=== PATIENT | male | born 1930 | race Caucasian/White ===

== ENCOUNTER 2017-03-19 09:09 | Day surgery (SDC) | payer MEDICARE ==
[~2017-03-19] VITALS: Ht 188 cm; Wt 123.2 kg
[2017-03-19] VITALS (10 sets, daily range): BP systolic 116–145; BP diastolic 63–90
[~2017-03-19 09:09] MED LIST: Magnesium PO; VITAMIN B12 PO; VITAMIN B6 PO
[2017-03-19] MEDS ORDERED: normal saline 1000ml 1,000 ML IV PRN (09:45)
[2017-03-19] MEDS ORDERED: albumin (human) 25% 100 ML IV solution IV PRN (09:45)
== END 2017-03-19 11:40 | disposition home or self-care (01) ==
LOC: SSTAY O 09:09
PROVIDERS: ATTEND Radiology Diagnostic Radiology
DX: K74.60 Unspecified cirrhosis of liver (principal); N18.4 Chronic kidney disease, stage 4 (severe); I48.91 Unspecified atrial fibrillation; Z95.810 Presence of automatic (implantable) cardiac defibrillator; Z98.890 Other specified postprocedural states; Z87.891 Personal history of nicotine dependence; Z88.6 Allergy status to analgesic agent; Z79.899 Other long term (current) drug therapy
CPT/HCPCS: 49083; A6257; J7030

== ENCOUNTER 2017-03-31 09:29 | Day surgery (SDC) | payer MEDICARE ==
[2017-03-31] VITALS (10 sets, daily range): BP systolic 124–156; BP diastolic 68–90
[~2017-03-31] VITALS: Ht 188 cm; Wt 128.8 kg
[2017-03-31] MEDS ORDERED: albumin (human) 25% 100 ML IV solution IV PRN (09:50)
[2017-03-31] MEDS ORDERED: normal saline 1000ml 1,000 ML IV PRN (09:50)
[2017-04-01] MEDS ORDERED: CIPR-230 PO (22:12)
[2017-04-01] MEDS ORDERED: POVI30SO (22:12)
== END 2017-03-31 12:00 | disposition home or self-care (01) ==
LOC: SSTAY O 09:29
PROVIDERS: ATTEND Radiology Vascular & Interventional Radiology
DX: R18.8 Other ascites (principal); K76.9 Liver disease, unspecified; I50.9 Heart failure, unspecified; N18.4 Chronic kidney disease, stage 4 (severe); I13.0 Hypertensive heart and chronic kidney disease with heart failure and stage 1 through stage 4 chronic kidney disease, or unspecified chronic kidney disease; I48.91 Unspecified atrial fibrillation; Z95.810 Presence of automatic (implantable) cardiac defibrillator; Z98.890 Other specified postprocedural states; Z86.19 Personal history of other infectious and parasitic diseases; Z82.49 Family history of ischemic heart disease and other diseases of the circulatory system; Z82.3 Family history of stroke; Z83.3 Family history of diabetes mellitus
CPT/HCPCS: 49083; A6257; J7030

== ENCOUNTER 2017-04-01 17:32 | Inpatient (IN) | payer MEDICARE ==
[~2017-04-01] VITALS: Ht 188 cm; Wt 117.7 kg
[2017-04-01 18:23] LABS: BASOPHILS % (AUTO) 0 % (0-1); EOSINOPHILS # (AUTO) 0.1 X10'3 (0-0.9); EOSINOPHILS % (AUTO) 1.5 % (0-6); HEMATOCRIT 29.1 % (42.0-52.0); HEMOGLOBIN 9.4 g/dl (14.0-17.9); LYMPHOCYTES # (AUTO) 0.7 X10'3 (1.1-4.8); LYMPHOCYTES % (AUTO) 6.8 % (21-51); MEAN CORPUSCULAR HEMOGLOBIN 29.7 PG (27.0-31.0); MEAN CORPUSCULAR HGB CONC 32.3 % (33.0-36.5); MEAN PLATELET VOLUME 6.4 FL (7.4-10.4); MONOCYTES # (AUTO) 0.8 X10'3 (0-0.9); MONOCYTES % (AUTO) 7.6 % (2-12); NEUTROPHILS # (AUTO) 8.3 X10'3 (1.8-7.7); NEUTROPHILS % (AUTO) 84.1 % (42-75); PLATELET COUNT 309 X10'3 (140-440); RED BLOOD COUNT 3.16 X10'6 (4.70-6.10); RED CELL DISTRIBUTION WIDTH 16.7 % (11.5-14.5); WHITE BLOOD COUNT 9.9 X10'3 (4.5-11.0)
[2017-04-01 18:33] LABS: INR 1.2 INR; PARTIAL THROMBOPLASTIN TIME 32 SECONDS (22-32); PROTHROMBIN TIME 12.7 SECONDS (9.0-12.0)
[2017-04-01 18:36] LABS: ALANINE AMINOTRANSFERASE 18 U/L (12-78); ALBUMIN 1.9 G/DL (3.4-5.0); ALBUMIN/GLOBULIN RATIO 0.4 (1.1-1.5); ALKALINE PHOSPHATASE 79 IU/L (46-116); ANION GAP 14 (8-16); ASPARTATE AMINO TRANSFERASE 14 U/L (10-37); BILIRUBIN,TOTAL 0.4 MG/DL (0.1-1.0); BLOOD UREA NITROGEN 94 MG/DL (7-18); CALCIUM 7.4 MG/DL (8.5-10.1); CHLORIDE 108 MMOL/L (99-107); CREATININE 5.89 MG/DL (0.60-1.10); GLUCOSE 141 MG/DL (70-104); POTASSIUM 3.7 MMOL/L (3.5-5.1); SODIUM 137 MMOL/L (135-145); TOTAL PROTEIN 6.8 G/DL (6.4-8.2); eGFR 9 ML/MIN
[2017-04-01 18:41] LABS: TOTAL CARBON DIOXIDE 14.9 MMOL/L (24-32)
[2017-04-01] MEDS ORDERED: levoFLOXACIN-Levaquin 500mg/D5 100 ML IV ONE (19:25)
[2017-04-01 19:45] LABS: CLARITY,URINE SLIGHTLY CLOUDY (Clear); COLOR,URINE STRAW (Yellow); GLUCOSE, URINE NEGATIVE (Neg); KETONES,URINE NEGATIVE (Neg); LEUKOCYTE ESTERASE ,URINE MODERATE (Neg); NITRITES, URINE POSITIVE (Neg); OCCULT BLOOD,URINE LARGE (Neg); PH,URINE 5.5 (4.8-8.0); PROTEIN,URINE 30 mg/dl (Neg); UROBILINOGEN,URINE 0.2 E.U/dL (0.2-1.0)
[2017-04-01 19:50] LABS: UA COLLECTION TYPE STRAIGHT CATH
[2017-04-01 19:52] LABS: RBC,URINE TNTC /HPF (0-2); WBC,URINE TNTC /HPF (0-4)
[2017-04-01 19:53] LABS: BACTERIA,URINE 2+ /HPF (Neg); SQUAMOUS EPITHELIAL CELL,UR NONE SEEN /LPF (FEW)
[2017-04-01 19:54] LABS: COARSE GRANULAR CAST 0-3 /LPF (NEGATIVE)
[2017-04-01] MEDS ORDERED: normal saline 1000ml 1,000 ML IV ONE (21:05)
[2017-04-01] MEDS ORDERED: diltiazem 5mg/ml 5ml inj. IV ONE (21:35)
[2017-04-01] MEDS ORDERED: ondansetron/PF 4mg/2ml inj IV PRN (21:35)
[2017-04-01] MEDS ORDERED: acetaminophen 325mg tablet PO PRN (21:35)
[2017-04-01] MEDS ORDERED: mag hydrox/Alum hydrox/simeth 30ml oral suspension PO PRN (21:35)
[2017-04-01] MEDS ORDERED: CIPR-230 PO (22:12)
[2017-04-01] MEDS ORDERED: POVI30SO (22:12)
[2017-04-01] MEDS: normal saline 1000ml 1,000 ML IV SCH (22:30)
[2017-04-01 22:50] VITALS: BP 119/75
[2017-04-02 03:00] VITALS: BP 121/61
[2017-04-02] MEDS ORDERED: metoprolol tartrate 25mg tablet PO SCH (04:45)
[2017-04-02 05:30] VITALS: BP 113/49
[2017-04-02 06:18] LABS: BASOPHILS % (AUTO) 0.3 % (0-1); EOSINOPHILS # (AUTO) 0.2 X10'3 (0-0.9); EOSINOPHILS % (AUTO) 1.9 % (0-6); HEMATOCRIT 23.9 % (42.0-52.0); HEMOGLOBIN 7.9 g/dl (14.0-17.9); LYMPHOCYTES # (AUTO) 0.7 X10'3 (1.1-4.8); LYMPHOCYTES % (AUTO) 8.6 % (21-51); MEAN CORPUSCULAR HEMOGLOBIN 29.9 PG (27.0-31.0); MEAN CORPUSCULAR HGB CONC 32.9 % (33.0-36.5); MEAN CORPUSCULAR VOLUME 90.9 FL (78-98); MEAN PLATELET VOLUME 6.8 FL (7.4-10.4); MONOCYTES # (AUTO) 0.7 X10'3 (0-0.9); MONOCYTES % (AUTO) 8.2 % (2-12); NEUTROPHILS # (AUTO) 6.4 X10'3 (1.8-7.7); PLATELET COUNT 277 X10'3 (140-440); RED BLOOD COUNT 2.63 X10'6 (4.70-6.10); RED CELL DISTRIBUTION WIDTH 16.9 % (11.5-14.5)
[2017-04-02 06:31] LABS: ALBUMIN 1.5 G/DL (3.4-5.0); ANION GAP 13 (8-16); BLOOD UREA NITROGEN 91 MG/DL (7-18); CALCIUM 7.2 MG/DL (8.5-10.1); CHLORIDE 109 MMOL/L (99-107); CREATININE 5.68 MG/DL (0.60-1.10); GLUCOSE 106 MG/DL (70-104); POTASSIUM 3.6 MMOL/L (3.5-5.1); SODIUM 137 MMOL/L (135-145); eGFR 9 ML/MIN
[2017-04-02 06:55] LABS: TOTAL CARBON DIOXIDE 14.8 MMOL/L (24-32)
[2017-04-02] MEDS: normal saline 1000ml 1,000 ML IV SCH ×3 (07:35→21:13)
[2017-04-02] MEDS: levoFLOXACIN-Levaquin 500mg/D5 100 ML IV SCH (09:07)
[2017-04-02] MEDS: metoprolol tartrate 25mg tablet PO SCH ×2 (09:08→21:13)
[2017-04-02 11:00] VITALS: BP 129/71
[2017-04-02 13:11] LABS: CREATININE,URINE RANDOM 61.9 MG/DL; TOTAL PROTEIN,URINE RANDOM 92.5 MG/DL
[2017-04-02 15:00] VITALS: BP 118/63
[2017-04-02 16:16] LABS: ABG BASE EXCESS -13.6 mmol/L (-2.0-3.0); ABG HCO3 10.9 mmol/L (22.0-26.0); ABG OXYGEN SATURATION 96.3 % (95-98); ABG PCO2 (T) 21.5 mmHg (35.0-48.0); ABG PH (T) 7.322 (7.350-7.450); ABG PO2 (T) 93.9 mmHg (83-108); ALLEN'S TEST Positive; FCOHb 0.3 % (0.5-1.5); FMetHb 0.4 % (0.3-1.12); FO2Hb 95.6 % (94-100); TOTAL HEMOGLOBIN 9.1 G/dl (14.0-18.0)
[2017-04-02 18:00] VITALS: BP 126/73
[2017-04-02] MEDS: furosemide 10 MG/1 ML 10ml inj IV SCH (21:13)
[2017-04-02] MEDS: magnesium hydroxide 30ml (MOM) UD suspension PO PRN (21:31)
[2017-04-02 22:00] VITALS: BP 123/67
[2017-04-03 02:00] VITALS: BP 132/72
[2017-04-03] MEDS: normal saline 1000ml 1,000 ML IV SCH ×4 (02:38→13:35)
[2017-04-03 05:53] LABS: BASOPHILS % (AUTO) 0 % (0-1); EOSINOPHILS # (AUTO) 0.2 X10'3 (0-0.9); EOSINOPHILS % (AUTO) 2.2 % (0-6); HEMATOCRIT 28.4 % (42.0-52.0); HEMOGLOBIN 9.2 g/dl (14.0-17.9); LYMPHOCYTES # (AUTO) 0.7 X10'3 (1.1-4.8); LYMPHOCYTES % (AUTO) 7.4 % (21-51); MEAN CORPUSCULAR HEMOGLOBIN 29.7 PG (27.0-31.0); MEAN CORPUSCULAR HGB CONC 32.3 % (33.0-36.5); MEAN CORPUSCULAR VOLUME 92.1 FL (78-98); MEAN PLATELET VOLUME 6.7 FL (7.4-10.4); MONOCYTES # (AUTO) 0.6 X10'3 (0-0.9); MONOCYTES % (AUTO) 6.2 % (2-12); NEUTROPHILS # (AUTO) 8.2 X10'3 (1.8-7.7); NEUTROPHILS % (AUTO) 84.2 % (42-75); PLATELET COUNT 323 X10'3 (140-440); RED BLOOD COUNT 3.09 X10'6 (4.70-6.10); RED CELL DISTRIBUTION WIDTH 16.5 % (11.5-14.5); WHITE BLOOD COUNT 9.7 X10'3 (4.5-11.0)
[2017-04-03 06:00] VITALS: BP 114/60
[2017-04-03 06:20] LABS: ALBUMIN 1.7 G/DL (3.4-5.0); ANION GAP 14 (8-16); BLOOD UREA NITROGEN 87 MG/DL (7-18); BUN/CREATININE RATIO 16.9 (5.4-32.0); CALCIUM 7.6 MG/DL (8.5-10.1); CHLORIDE 106 MMOL/L (99-107); CREATININE 5.16 MG/DL (0.60-1.10); GLUCOSE 113 MG/DL (70-104); POTASSIUM 3.7 MMOL/L (3.5-5.1); SODIUM 134 MMOL/L (135-145); eGFR 11 ML/MIN
[2017-04-03 06:58] LABS: TOTAL CARBON DIOXIDE 14.3 MMOL/L (24-32)
[2017-04-03] MEDS: levoFLOXACIN-Levaquin 500mg/D5 100 ML IV SCH (08:16)
[2017-04-03] MEDS: furosemide 10 MG/1 ML 10ml inj IV SCH (08:17)
[2017-04-03] MEDS: metoprolol tartrate 25mg tablet PO SCH ×2 (08:17→21:01)
[2017-04-03] MEDS: LACTOBACILLUS RHAMNOSUS GG 15 billion unit sprinkle caps PO SCH (08:17)
[2017-04-03] MEDS: POVIDONE IODINE TP SCH (08:42)
[2017-04-03] MEDS: sodium bicarbonate (8.4%) inj. 100 MEQ in dextrose 5%-water 1,000 ML IV SCH ×2 (11:32→21:03)
[2017-04-03] MEDS ORDERED: vancomycin/NS 1 GM ADD-VANTAGE 250 ML IV ONE (15:50)
[2017-04-03] MEDS ORDERED: heparin 10,000 units/1 ML INJ IV ONE (17:45)
[2017-04-03] MEDS ORDERED: heparin 10,000 units/1 ML INJ IV PRN (17:45)
[2017-04-03 18:12] LABS: BASOPHILS % (AUTO) 0 % (0-1); EOSINOPHILS # (AUTO) 0.1 X10'3 (0-0.9); EOSINOPHILS % (AUTO) 1.5 % (0-6); HEMOGLOBIN 8.8 g/dl (14.0-17.9); LYMPHOCYTES # (AUTO) 0.7 X10'3 (1.1-4.8); LYMPHOCYTES % (AUTO) 7.6 % (21-51); MEAN CORPUSCULAR HEMOGLOBIN 29.7 PG (27.0-31.0); MEAN CORPUSCULAR HGB CONC 32.5 % (33.0-36.5); MEAN CORPUSCULAR VOLUME 91.4 FL (78-98); MEAN PLATELET VOLUME 6.5 FL (7.4-10.4); MONOCYTES # (AUTO) 0.7 X10'3 (0-0.9); NEUTROPHILS # (AUTO) 7.5 X10'3 (1.8-7.7); NEUTROPHILS % (AUTO) 82.9 % (42-75); PLATELET COUNT 298 X10'3 (140-440); RED BLOOD COUNT 2.95 X10'6 (4.70-6.10); RED CELL DISTRIBUTION WIDTH 16.4 % (11.5-14.5)
[2017-04-03 18:22] LABS: INR 1.3 INR; PARTIAL THROMBOPLASTIN TIME 35 SECONDS (22-32); PROTHROMBIN TIME 13.4 SECONDS (9.0-12.0)
[2017-04-03 19:00] VITALS: BP 119/59
[2017-04-03] MEDS ORDERED: bisacodyl 10mg suppository rectal RC STA (20:09)
[2017-04-03 23:00] VITALS: BP 119/67
[2017-04-03] MEDS: piperacillin-tazo 2.25gm/50ml 50 ML IV SCH (23:13)
[2017-04-03 23:27] LABS: OCCULT BLOOD STOOL NEGATIVE (Neg)
[2017-04-04 03:00] VITALS: BP 116/60
[2017-04-04] MEDS: VANCOMYCIN LEVEL IV SCH (03:00)
[2017-04-04 04:04] LABS: BASOPHILS % (AUTO) 0 % (0-1); EOSINOPHILS # (AUTO) 0.2 X10'3 (0-0.9); HEMOGLOBIN 8.4 g/dl (14.0-17.9); LYMPHOCYTES # (AUTO) 0.6 X10'3 (1.1-4.8); LYMPHOCYTES % (AUTO) 7.4 % (21-51); MEAN CORPUSCULAR HEMOGLOBIN 29.7 PG (27.0-31.0); MEAN CORPUSCULAR HGB CONC 32.2 % (33.0-36.5); MEAN CORPUSCULAR VOLUME 92.4 FL (78-98); MEAN PLATELET VOLUME 6.3 FL (7.4-10.4); MONOCYTES # (AUTO) 0.7 X10'3 (0-0.9); MONOCYTES % (AUTO) 8.1 % (2-12); NEUTROPHILS % (AUTO) 82.5 % (42-75); PLATELET COUNT 296 X10'3 (140-440); RED BLOOD COUNT 2.82 X10'6 (4.70-6.10); RED CELL DISTRIBUTION WIDTH 16.9 % (11.5-14.5); WHITE BLOOD COUNT 8.5 X10'3 (4.5-11.0)
[2017-04-04 04:19] LABS: ALBUMIN 1.4 G/DL (3.4-5.0); ANION GAP 13 (8-16); BLOOD UREA NITROGEN 88 MG/DL (7-18); BUN/CREATININE RATIO 16.7 (5.4-32.0); CALCIUM 6.9 MG/DL (8.5-10.1); CHLORIDE 105 MMOL/L (99-107); CREATININE 5.27 MG/DL (0.60-1.10); GLUCOSE 147 MG/DL (70-104); POTASSIUM 3.3 MMOL/L (3.5-5.1); SODIUM 135 MMOL/L (135-145); TOTAL CARBON DIOXIDE 17.2 MMOL/L (24-32); VANCOMYCIN,RANDOM 5.3 UG/ML; eGFR 10 ML/MIN
[2017-04-04] MEDS: sodium bicarbonate (8.4%) inj. 100 MEQ in dextrose 5%-water 1,000 ML IV SCH ×3 (05:11→21:55)
[2017-04-04 06:00] VITALS: BP 123/63
[2017-04-04] MEDS ORDERED: vancomycin/NS 1 GM ADD-VANTAGE 250 ML IV PRN (06:00)
[2017-04-04] MEDS: piperacillin-tazo 2.25gm/50ml 50 ML IV SCH ×3 (08:54→23:13)
[2017-04-04] MEDS: LACTOBACILLUS RHAMNOSUS GG 15 billion unit sprinkle caps PO SCH (08:55)
[2017-04-04] MEDS: metoprolol tartrate 25mg tablet PO SCH ×2 (08:55→19:57)
[2017-04-04] MEDS: furosemide 10 MG/1 ML 10ml inj IV SCH (08:56)
[2017-04-04] MEDS: POVIDONE IODINE TP SCH (08:56)
[2017-04-04] MEDS ORDERED: potassium Cl 20 mEq SR tablet PO PRN ×3 (09:05→16:10)
[2017-04-04] MEDS ORDERED: potassium Cl 40MEQ/NS 500ml 500 ML IV PRN ×4 (09:05→16:10)
[2017-04-04] MEDS: potassium Cl 20 mEq SR tablet PO PRN ×3 (09:49→21:35)
[2017-04-04 11:00] VITALS: BP 134/56
[2017-04-04 15:00] VITALS: BP 124/59
[2017-04-04 19:00] VITALS: BP 128/78
[2017-04-04] MEDS ORDERED: temazepam 15mg capsule PO ONE (21:00)
[2017-04-04 23:00] VITALS: BP 125/73
[2017-04-05 03:00] VITALS: BP 140/82
[2017-04-05] MEDS: VANCOMYCIN LEVEL IV SCH (03:11)
[2017-04-05 03:40] LABS: UREA NITROGEN 24HR,URINE 10.7 GM/24HR (7-20)
[2017-04-05 06:00] VITALS: BP 120/55
[2017-04-05 06:04] LABS: BASOPHILS % (AUTO) 0.1 % (0-1); EOSINOPHILS # (AUTO) 0.2 X10'3 (0-0.9); EOSINOPHILS % (AUTO) 2.2 % (0-6); HEMATOCRIT 25.2 % (42.0-52.0); HEMOGLOBIN 8.2 g/dl (14.0-17.9); LYMPHOCYTES # (AUTO) 0.7 X10'3 (1.1-4.8); LYMPHOCYTES % (AUTO) 8.7 % (21-51); MEAN CORPUSCULAR HEMOGLOBIN 29.6 PG (27.0-31.0); MEAN CORPUSCULAR HGB CONC 32.6 % (33.0-36.5); MEAN CORPUSCULAR VOLUME 90.8 FL (78-98); MEAN PLATELET VOLUME 6.8 FL (7.4-10.4); MONOCYTES # (AUTO) 0.8 X10'3 (0-0.9); NEUTROPHILS # (AUTO) 6.5 X10'3 (1.8-7.7); PLATELET COUNT 293 X10'3 (140-440); RED BLOOD COUNT 2.78 X10'6 (4.70-6.10); RED CELL DISTRIBUTION WIDTH 16.6 % (11.5-14.5); WHITE BLOOD COUNT 8.2 X10'3 (4.5-11.0)
[2017-04-05 06:33] LABS: ALBUMIN 1.2 G/DL (3.4-5.0); ANION GAP 12 (8-16); BLOOD UREA NITROGEN 80 MG/DL (7-18); BUN/CREATININE RATIO 15.8 (5.4-32.0); CALCIUM 7.2 MG/DL (8.5-10.1); CHLORIDE 103 MMOL/L (99-107); CREATININE 5.05 MG/DL (0.60-1.10); GLUCOSE 147 MG/DL (70-104); POTASSIUM 3.2 MMOL/L (3.5-5.1); SODIUM 134 MMOL/L (135-145); TOTAL CARBON DIOXIDE 19.1 MMOL/L (24-32); VANCOMYCIN,RANDOM 14.9 UG/ML; eGFR 11 ML/MIN
[2017-04-05] MEDS: sodium bicarbonate (8.4%) inj. 100 MEQ in dextrose 5%-water 1,000 ML IV SCH ×2 (07:04→15:05)
[2017-04-05] MEDS: piperacillin-tazo 2.25gm/50ml 50 ML IV SCH ×2 (07:20→15:05)
[2017-04-05] MEDS: metoprolol tartrate 25mg tablet PO SCH ×2 (07:20→19:38)
[2017-04-05] MEDS: LACTOBACILLUS RHAMNOSUS GG 15 billion unit sprinkle caps PO SCH (07:22)
[2017-04-05] MEDS: K and/or MAG REPLACEMENT MC SCH (07:22)
[2017-04-05] MEDS: furosemide 10 MG/1 ML 10ml inj IV SCH (07:22)
[2017-04-05] MEDS: POVIDONE IODINE TP SCH (07:26)
[2017-04-05] MEDS: potassium Cl 20 mEq SR tablet PO PRN ×4 (07:29→22:32)
[2017-04-05 07:30] LABS: CLARITY,URINE SLIGHTLY CLOUDY (Clear); COLOR,URINE YELLOW (Yellow); GLUCOSE, URINE NEGATIVE (Neg); KETONES,URINE NEGATIVE (Neg); LEUKOCYTE ESTERASE ,URINE LARGE (Neg); NITRITES, URINE NEGATIVE (Neg); OCCULT BLOOD,URINE LARGE (Neg); PH,URINE 5.5 (4.8-8.0); PROTEIN,URINE NEGATIVE (Neg); UROBILINOGEN,URINE 0.2 E.U/dL (0.2-1.0)
[2017-04-05 07:37] LABS: UA COLLECTION TYPE FOLEY CATH
[2017-04-05 07:41] LABS: BACTERIA,URINE 1+ /HPF (Neg); MUCUS STRANDS NONE SEEN /LPF (Neg); SQUAMOUS EPITHELIAL CELL,UR NONE SEEN /LPF (FEW); WBC,URINE 20-30 /HPF (0-4)
[2017-04-05] MEDS ORDERED: K and/or MAG REPLACEMENT MC SCH (08:00)
[2017-04-05 11:00] VITALS: BP 135/60
[2017-04-05 15:00] VITALS: BP 141/69
[2017-04-05 19:00] VITALS: BP 125/60
[2017-04-05 20:16] LABS: ALANINE AMINOTRANSFERASE 13 U/L (12-78); ALBUMIN 1.3 G/DL (3.4-5.0); ALBUMIN/GLOBULIN RATIO 0.3 (1.1-1.5); ALKALINE PHOSPHATASE 59 IU/L (46-116); ANION GAP 9 (8-16); ASPARTATE AMINO TRANSFERASE 16 U/L (10-37); BILIRUBIN,TOTAL 0.4 MG/DL (0.1-1.0); BLOOD UREA NITROGEN 83 MG/DL (7-18); CALCIUM 7.1 MG/DL (8.5-10.1); CHLORIDE 101 MMOL/L (99-107); CREATININE 4.87 MG/DL (0.60-1.10); GLUCOSE 177 MG/DL (70-104); POTASSIUM 3.4 MMOL/L (3.5-5.1); SODIUM 132 MMOL/L (135-145); TOTAL CARBON DIOXIDE 22.3 MMOL/L (24-32); eGFR 11 ML/MIN
[2017-04-05 20:24] LABS: MAGNESIUM 1.8 MG/DL (1.5-2.4)
[2017-04-05] MEDS: temazepam 15mg capsule PO PRN (22:33)
[2017-04-05 23:00] VITALS: BP 129/59
[2017-04-06] VITALS (25 sets, daily range): BP systolic 102–140; BP diastolic 54–82
[2017-04-06] MEDS: sodium bicarbonate (8.4%) inj. 100 MEQ in dextrose 5%-water 1,000 ML IV SCH ×3 (00:32→14:34)
[2017-04-06] MEDS: piperacillin-tazo 2.25gm/50ml 50 ML IV SCH ×4 (00:32→23:33)
[2017-04-06] MEDS: VANCOMYCIN LEVEL IV SCH (03:00)
[2017-04-06 04:01] LABS: BASOPHILS % (AUTO) 0.1 % (0-1); EOSINOPHILS # (AUTO) 0.2 X10'3 (0-0.9); EOSINOPHILS % (AUTO) 2.1 % (0-6); HEMATOCRIT 25.6 % (42.0-52.0); HEMOGLOBIN 8.2 g/dl (14.0-17.9); LYMPHOCYTES # (AUTO) 0.8 X10'3 (1.1-4.8); LYMPHOCYTES % (AUTO) 9.6 % (21-51); MEAN CORPUSCULAR HEMOGLOBIN 29.3 PG (27.0-31.0); MEAN CORPUSCULAR HGB CONC 32.1 % (33.0-36.5); MEAN PLATELET VOLUME 7.1 FL (7.4-10.4); MONOCYTES # (AUTO) 0.8 X10'3 (0-0.9); MONOCYTES % (AUTO) 9.7 % (2-12); NEUTROPHILS # (AUTO) 6.7 X10'3 (1.8-7.7); NEUTROPHILS % (AUTO) 78.5 % (42-75); PLATELET COUNT 308 X10'3 (140-440); RED BLOOD COUNT 2.81 X10'6 (4.70-6.10); RED CELL DISTRIBUTION WIDTH 16.1 % (11.5-14.5); WHITE BLOOD COUNT 8.6 X10'3 (4.5-11.0)
[2017-04-06 04:03] LABS: ALBUMIN 1.3 G/DL (3.4-5.0); ANION GAP 10 (8-16); BLOOD UREA NITROGEN 82 MG/DL (7-18); BUN/CREATININE RATIO 16.4 (5.4-32.0); CALCIUM 7.2 MG/DL (8.5-10.1); CHLORIDE 100 MMOL/L (99-107); CREATININE 5.01 MG/DL (0.60-1.10); GLUCOSE 141 MG/DL (70-104); POTASSIUM 3.5 MMOL/L (3.5-5.1); SODIUM 132 MMOL/L (135-145); TOTAL CARBON DIOXIDE 21.6 MMOL/L (24-32); VANCOMYCIN,RANDOM 14.2 UG/ML; eGFR 11 ML/MIN
[2017-04-06] MEDS: K and/or MAG REPLACEMENT MC SCH (08:00)
[2017-04-06] MEDS: furosemide 10 MG/1 ML 10ml inj IV SCH (08:26)
[2017-04-06] MEDS: LACTOBACILLUS RHAMNOSUS GG 15 billion unit sprinkle caps PO SCH (08:27)
[2017-04-06] MEDS: metoprolol tartrate 25mg tablet PO SCH ×2 (08:27→20:34)
[2017-04-06] MEDS: POVIDONE IODINE TP SCH (08:28)
[2017-04-06] MEDS ORDERED: vancomycin inj 500 MG in normal saline 100ml IV soln 100 ML IV ONE (09:00)
[2017-04-06] MEDS ORDERED: fentaNYL/PF 50MCG/1 ML 2ML syringe IV PRN (12:15)
[2017-04-06] MEDS ORDERED: LIDOcaine 1%/PF (10mg/ml) 5ml vial SQ ONE (12:15)
[2017-04-06] MEDS ORDERED: midazolam 2 mg/2 ml injection IV PRN (12:15)
[2017-04-06] MEDS ORDERED: iohexol 300 MG/1 ML 50ml polymer ONE ×2 (12:19→13:38)
[2017-04-06] MEDS ORDERED: LIDOcaine 1%/PF (10mg/ml) 5ml vial ONE (12:19)
[2017-04-06] MEDS ORDERED: heparin 1,000unit/ml 10ml vial 0 ML ONE (13:54)
[2017-04-06] MEDS ORDERED: heparin 1,000 UNITS/NS 500ml 500 ML ONE (13:55)
[2017-04-06] MEDS ORDERED: midazolam 2 mg/2 ml injection ONE (13:55)
[2017-04-06] MEDS ORDERED: fentaNYL/PF 50MCG/1 ML 2ML syringe ONE ×2 (13:55→14:23)
[2017-04-06] MEDS: potassium Cl 20 mEq SR tablet PO SCH (16:54)
[2017-04-06] MEDS: amiodarone 200mg tablet PO SCH (20:33)
[2017-04-06] MEDS: temazepam 15mg capsule PO PRN (20:33)
[2017-04-06] MEDS: spironolactone 25 MG tablet PO SCH (20:34)
[2017-04-07 03:00] VITALS: BP 116/56
[2017-04-07] MEDS: VANCOMYCIN LEVEL IV SCH (03:00)
[2017-04-07] MEDS: sodium bicarbonate (8.4%) inj. 100 MEQ in dextrose 5%-water 1,000 ML IV SCH ×3 (04:19→21:06)
[2017-04-07 06:00] VITALS: BP 108/56
[2017-04-07 06:18] LABS: VANCOMYCIN,RANDOM 14.8 UG/ML
[2017-04-07 07:03] LABS: ALANINE AMINOTRANSFERASE 12 U/L (12-78); ALBUMIN 1.2 G/DL (3.4-5.0); ALBUMIN/GLOBULIN RATIO 0.3 (1.1-1.5); ALKALINE PHOSPHATASE 54 IU/L (46-116); ANION GAP 9 (8-16); ASPARTATE AMINO TRANSFERASE 13 U/L (10-37); BASOPHILS % (AUTO) 0.2 % (0-1); BILIRUBIN,TOTAL 0.3 MG/DL (0.1-1.0); BLOOD UREA NITROGEN 86 MG/DL (7-18); BUN/CREATININE RATIO 16.9 (5.4-32.0); CALCIUM 7.3 MG/DL (8.5-10.1); CHLORIDE 99 MMOL/L (99-107); CREATININE 5.09 MG/DL (0.60-1.10); EOSINOPHILS # (AUTO) 0.3 X10'3 (0-0.9); EOSINOPHILS % (AUTO) 3.4 % (0-6); GLUCOSE 122 MG/DL (70-104); HEMATOCRIT 25.5 % (42.0-52.0); HEMOGLOBIN 8.3 g/dl (14.0-17.9); LYMPHOCYTES # (AUTO) 0.7 X10'3 (1.1-4.8); LYMPHOCYTES % (AUTO) 8.5 % (21-51); MEAN CORPUSCULAR HEMOGLOBIN 29.6 PG (27.0-31.0); MEAN CORPUSCULAR HGB CONC 32.5 % (33.0-36.5); MEAN CORPUSCULAR VOLUME 90.9 FL (78-98); MEAN PLATELET VOLUME 6.9 FL (7.4-10.4); MONOCYTES # (AUTO) 0.7 X10'3 (0-0.9); MONOCYTES % (AUTO) 9.3 % (2-12); NEUTROPHILS # (AUTO) 6.1 X10'3 (1.8-7.7); NEUTROPHILS % (AUTO) 78.6 % (42-75); PLATELET COUNT 301 X10'3 (140-440); POTASSIUM 3.7 MMOL/L (3.5-5.1); RED BLOOD COUNT 2.81 X10'6 (4.70-6.10); RED CELL DISTRIBUTION WIDTH 16.2 % (11.5-14.5); SODIUM 133 MMOL/L (135-145); TOTAL CARBON DIOXIDE 24.6 MMOL/L (24-32); TOTAL PROTEIN 5.5 G/DL (6.4-8.2); WHITE BLOOD COUNT 7.7 X10'3 (4.5-11.0); eGFR 11 ML/MIN
[2017-04-07] MEDS: piperacillin-tazo 2.25gm/50ml 50 ML IV SCH ×2 (07:28→16:42)
[2017-04-07] MEDS: POVIDONE IODINE TP SCH (08:00)
[2017-04-07 08:22] LABS: A/G RATIO 0.5 (0.7-1.7); ALBUMIN 2.1 g/dL (2.9-4.4); BETA GLOBULIN 0.7 g/dL (0.7-1.3); GLOBULIN, TOTAL 3.9 g/dL (2.2-3.9); M-SPIKE Not Observed g/dL (Not Observed)
[2017-04-07] MEDS ORDERED: vancomycin/NS 1 GM ADD-VANTAGE 250 ML IV ONE (09:00)
[2017-04-07] MEDS: LACTOBACILLUS RHAMNOSUS GG 15 billion unit sprinkle caps PO SCH (09:24)
[2017-04-07] MEDS: metoprolol tartrate 25mg tablet PO SCH ×2 (09:31→20:10)
[2017-04-07] MEDS: spironolactone 25 MG tablet PO SCH ×3 (09:31→20:10)
[2017-04-07] MEDS: amiodarone 200mg tablet PO SCH ×2 (09:31→20:10)
[2017-04-07] MEDS: furosemide 10 MG/1 ML 10ml inj IV SCH (09:31)
[2017-04-07] MEDS: potassium Cl 20 mEq SR tablet PO SCH ×2 (09:31→17:47)
[2017-04-07 11:00] VITALS: BP 117/67
[2017-04-07 15:00] VITALS: BP 103/50
[2017-04-07] MEDS ORDERED: LORazepam 2 mg/ml vial IV PRN (17:35)
[2017-04-07 19:00] VITALS: BP 122/63
[2017-04-07] MEDS: magnesium hydroxide 30ml (MOM) UD suspension PO PRN (20:10)
[2017-04-07] MEDS: temazepam 15mg capsule PO PRN (21:06)
[2017-04-07 23:00] VITALS: BP 103/57
[2017-04-08] MEDS: piperacillin-tazo 2.25gm/50ml 50 ML IV SCH ×4 (00:21→23:54)
[2017-04-08 03:00] VITALS: BP 102/55
[2017-04-08] MEDS: VANCOMYCIN LEVEL IV SCH (03:00)
[2017-04-08] MEDS: acetaminophen 325mg tablet PO PRN ×2 (04:20→23:54)
[2017-04-08 06:00] VITALS: BP 92/56
[2017-04-08 06:16] LABS: BASOPHILS % (AUTO) 0.3 % (0-1); EOSINOPHILS # (AUTO) 0.2 X10'3 (0-0.9); EOSINOPHILS % (AUTO) 2.9 % (0-6); HEMATOCRIT 25.4 % (42.0-52.0); HEMOGLOBIN 8.3 g/dl (14.0-17.9); LYMPHOCYTES # (AUTO) 0.8 X10'3 (1.1-4.8); LYMPHOCYTES % (AUTO) 9.3 % (21-51); MEAN CORPUSCULAR HEMOGLOBIN 29.5 PG (27.0-31.0); MEAN CORPUSCULAR HGB CONC 32.7 % (33.0-36.5); MEAN PLATELET VOLUME 6.9 FL (7.4-10.4); MONOCYTES # (AUTO) 0.8 X10'3 (0-0.9); MONOCYTES % (AUTO) 9.5 % (2-12); NEUTROPHILS # (AUTO) 6.5 X10'3 (1.8-7.7); PLATELET COUNT 298 X10'3 (140-440); RED BLOOD COUNT 2.82 X10'6 (4.70-6.10); RED CELL DISTRIBUTION WIDTH 15.8 % (11.5-14.5); WHITE BLOOD COUNT 8.4 X10'3 (4.5-11.0)
[2017-04-08 06:34] LABS: ALBUMIN 1.2 G/DL (3.4-5.0); ANION GAP 8 (8-16); BLOOD UREA NITROGEN 84 MG/DL (7-18); BUN/CREATININE RATIO 17.1 (5.4-32.0); CALCIUM 7.3 MG/DL (8.5-10.1); CHLORIDE 98 MMOL/L (99-107); GLUCOSE 127 MG/DL (70-104); SODIUM 132 MMOL/L (135-145); TOTAL CARBON DIOXIDE 26.2 MMOL/L (24-32); VANCOMYCIN,RANDOM 19.5 UG/ML; eGFR 11 ML/MIN
[2017-04-08] MEDS: spironolactone 25 MG tablet PO SCH ×3 (07:48→20:07)
[2017-04-08] MEDS: amiodarone 200mg tablet PO SCH ×2 (07:49→19:55)
[2017-04-08] MEDS: furosemide 10 MG/1 ML 10ml inj IV SCH (07:49)
[2017-04-08] MEDS: potassium Cl 20 mEq SR tablet PO SCH ×2 (07:49→18:24)
[2017-04-08] MEDS: LACTOBACILLUS RHAMNOSUS GG 15 billion unit sprinkle caps PO SCH (07:49)
[2017-04-08] MEDS: metoprolol tartrate 25mg tablet PO SCH ×2 (07:49→19:55)
[2017-04-08] MEDS: K and/or MAG REPLACEMENT MC SCH ×2 (07:50→08:00)
[2017-04-08] MEDS: POVIDONE IODINE TP SCH (07:52)
[2017-04-08] MEDS: epoetin 20,000 units/ml inj IV SCH (08:00)
[2017-04-08 11:00] VITALS: BP 113/67
[2017-04-08 15:00] VITALS: BP 119/63
[2017-04-08 19:00] VITALS: BP 106/61
[2017-04-08] MEDS: temazepam 15mg capsule PO PRN (20:07)
[2017-04-08] MEDS: sodium bicarbonate (8.4%) inj. 100 MEQ in dextrose 5%-water 1,000 ML IV SCH (22:05)
[2017-04-08 23:00] VITALS: BP 114/62
[2017-04-09 03:00] VITALS: BP 116/69
[2017-04-09] MEDS: VANCOMYCIN LEVEL IV SCH (03:00)
[2017-04-09 06:00] VITALS: BP 108/50
[2017-04-09 06:06] LABS: VANCOMYCIN,RANDOM 17.5 UG/ML
[2017-04-09] MEDS: K and/or MAG REPLACEMENT MC SCH (08:00)
[2017-04-09 08:01] LABS: BASOPHILS % (AUTO) 0.5 % (0-1); EOSINOPHILS # (AUTO) 0.4 X10'3 (0-0.9); EOSINOPHILS % (AUTO) 5.5 % (0-6); HEMATOCRIT 24.6 % (42.0-52.0); HEMOGLOBIN 7.9 g/dl (14.0-17.9); LYMPHOCYTES # (AUTO) 0.7 X10'3 (1.1-4.8); LYMPHOCYTES % (AUTO) 9.6 % (21-51); MEAN CORPUSCULAR HEMOGLOBIN 29.4 PG (27.0-31.0); MEAN CORPUSCULAR HGB CONC 32.3 % (33.0-36.5); MEAN CORPUSCULAR VOLUME 91.1 FL (78-98); MEAN PLATELET VOLUME 6.9 FL (7.4-10.4); MONOCYTES # (AUTO) 0.6 X10'3 (0-0.9); MONOCYTES % (AUTO) 8.6 % (2-12); NEUTROPHILS # (AUTO) 5.4 X10'3 (1.8-7.7); NEUTROPHILS % (AUTO) 75.8 % (42-75); PLATELET COUNT 287 X10'3 (140-440); RED CELL DISTRIBUTION WIDTH 16.1 % (11.5-14.5); WHITE BLOOD COUNT 7.2 X10'3 (4.5-11.0)
[2017-04-09 08:23] LABS: ALBUMIN 1.2 G/DL (3.4-5.0); ANION GAP 8 (8-16); BLOOD UREA NITROGEN 86 MG/DL (7-18); BUN/CREATININE RATIO 17.2 (5.4-32.0); CALCIUM 7.3 MG/DL (8.5-10.1); CHLORIDE 97 MMOL/L (99-107); GLUCOSE 174 MG/DL (70-104); PHOSPHORUS 5.4 MG/DL (2.3-4.5); POTASSIUM 4.5 MMOL/L (3.5-5.1); SODIUM 132 MMOL/L (135-145); TOTAL CARBON DIOXIDE 26.8 MMOL/L (24-32); eGFR 11 ML/MIN
[2017-04-09] MEDS: LACTOBACILLUS RHAMNOSUS GG 15 billion unit sprinkle caps PO SCH (08:30)
[2017-04-09] MEDS: potassium Cl 20 mEq SR tablet PO SCH ×2 (08:30→16:38)
[2017-04-09] MEDS: spironolactone 25 MG tablet PO SCH ×3 (08:30→19:53)
[2017-04-09] MEDS: amiodarone 200mg tablet PO SCH ×2 (08:30→19:53)
[2017-04-09] MEDS: metoprolol tartrate 25mg tablet PO SCH ×2 (08:30→19:54)
[2017-04-09] MEDS: POVIDONE IODINE TP SCH (08:34)
[2017-04-09] MEDS: piperacillin-tazo 2.25gm/50ml 50 ML IV SCH ×2 (08:39→16:36)
[2017-04-09] MEDS: furosemide 10 MG/1 ML 10ml inj IV SCH (10:10)
[2017-04-09] MEDS: sodium bicarbonate (8.4%) inj. 100 MEQ in dextrose 5%-water 1,000 ML IV SCH (10:13)
[2017-04-09 11:00] VITALS: BP 109/56
[2017-04-09 15:00] VITALS: BP 113/59
[2017-04-09 19:00] VITALS: BP 141/79
[2017-04-09] MEDS: temazepam 15mg capsule PO PRN (21:40)
[2017-04-09] MEDS: acetaminophen 325mg tablet PO PRN (21:43)
[2017-04-09 23:00] VITALS: BP 112/49
[2017-04-10] VITALS (8 sets, daily range): BP systolic 103–130; BP diastolic 53–75
[2017-04-10] MEDS: piperacillin-tazo 2.25gm/50ml 50 ML IV SCH ×3 (00:33→16:27)
[2017-04-10] MEDS: VANCOMYCIN LEVEL IV SCH (03:00)
[2017-04-10 05:35] LABS: ALBUMIN 1.3 G/DL (3.4-5.0); ANION GAP 8 (8-16); BLOOD UREA NITROGEN 89 MG/DL (7-18); BUN/CREATININE RATIO 17.1 (5.4-32.0); CALCIUM 7.7 MG/DL (8.5-10.1); CHLORIDE 98 MMOL/L (99-107); GLUCOSE 120 MG/DL (70-104); MAGNESIUM 2.1 MG/DL (1.5-2.4); PHOSPHORUS 5.5 MG/DL (2.3-4.5); POTASSIUM 4.7 MMOL/L (3.5-5.1); SODIUM 135 MMOL/L (135-145); TOTAL CARBON DIOXIDE 29.2 MMOL/L (24-32); eGFR 10 ML/MIN
[2017-04-10 05:49] LABS: BASOPHILS % (AUTO) 0.4 % (0-1); EOSINOPHILS # (AUTO) 0.4 X10'3 (0-0.9); EOSINOPHILS % (AUTO) 4.9 % (0-6); HEMATOCRIT 25.2 % (42.0-52.0); HEMOGLOBIN 8.4 g/dl (14.0-17.9); LYMPHOCYTES # (AUTO) 0.9 X10'3 (1.1-4.8); LYMPHOCYTES % (AUTO) 9.8 % (21-51); MEAN CORPUSCULAR HEMOGLOBIN 29.9 PG (27.0-31.0); MEAN CORPUSCULAR HGB CONC 33.1 % (33.0-36.5); MEAN CORPUSCULAR VOLUME 90.2 FL (78-98); MEAN PLATELET VOLUME 6.9 FL (7.4-10.4); MONOCYTES # (AUTO) 0.8 X10'3 (0-0.9); MONOCYTES % (AUTO) 9.1 % (2-12); NEUTROPHILS # (AUTO) 6.6 X10'3 (1.8-7.7); NEUTROPHILS % (AUTO) 75.8 % (42-75); PLATELET COUNT 315 X10'3 (140-440); RED CELL DISTRIBUTION WIDTH 14.3 % (11.5-14.5); WHITE BLOOD COUNT 8.7 X10'3 (4.5-11.0)
[2017-04-10] MEDS: epoetin 20,000 units/ml inj IV SCH (08:00)
[2017-04-10] MEDS: spironolactone 25 MG tablet PO SCH ×3 (08:00→18:47)
[2017-04-10] MEDS: K and/or MAG REPLACEMENT MC SCH (08:00)
[2017-04-10] MEDS: LACTOBACILLUS RHAMNOSUS GG 15 billion unit sprinkle caps PO SCH (08:11)
[2017-04-10] MEDS: amiodarone 200mg tablet PO SCH ×2 (08:12→19:28)
[2017-04-10] MEDS: furosemide 10 MG/1 ML 10ml inj IV SCH (08:14)
[2017-04-10] MEDS: POVIDONE IODINE TP SCH (08:24)
[2017-04-10] MEDS: potassium Cl 20 mEq SR tablet PO SCH ×2 (08:30→17:30)
[2017-04-10] MEDS ORDERED: LIDOcaine 1%/PF (10mg/ml) 5ml vial ONE (09:41)
[2017-04-10] MEDS: metoprolol tartrate 25mg tablet PO SCH ×2 (12:55→19:27)
[2017-04-10] MEDS: temazepam 15mg capsule PO PRN (21:27)
[2017-04-10] MEDS: acetaminophen 325mg tablet PO PRN (21:27)
[2017-04-11] VITALS (20 sets, daily range): BP systolic 89–129; BP diastolic 54–77
[2017-04-11] MEDS: piperacillin-tazo 2.25gm/50ml 50 ML IV SCH ×3 (00:26→16:07)
[2017-04-11] MEDS: VANCOMYCIN LEVEL IV SCH (03:00)
[2017-04-11 04:53] LABS: BASOPHILS # (AUTO) 0.1 X10'3 (0-0.2); BASOPHILS % (AUTO) 0.8 % (0-1); EOSINOPHILS # (AUTO) 0.4 X10'3 (0-0.9); EOSINOPHILS % (AUTO) 6.3 % (0-6); HEMATOCRIT 26.4 % (42.0-52.0); HEMOGLOBIN 8.4 g/dl (14.0-17.9); LYMPHOCYTES # (AUTO) 0.9 X10'3 (1.1-4.8); LYMPHOCYTES % (AUTO) 12.2 % (21-51); MEAN CORPUSCULAR HEMOGLOBIN 29.1 PG (27.0-31.0); MEAN CORPUSCULAR VOLUME 90.9 FL (78-98); MEAN PLATELET VOLUME 6.6 FL (7.4-10.4); MONOCYTES # (AUTO) 0.6 X10'3 (0-0.9); MONOCYTES % (AUTO) 8.8 % (2-12); NEUTROPHILS # (AUTO) 5.1 X10'3 (1.8-7.7); NEUTROPHILS % (AUTO) 71.9 % (42-75); PLATELET COUNT 325 X10'3 (140-440); RED CELL DISTRIBUTION WIDTH 15.9 % (11.5-14.5); WHITE BLOOD COUNT 7.1 X10'3 (4.5-11.0)
[2017-04-11 05:09] LABS: ALBUMIN 1.3 G/DL (3.4-5.0); ANION GAP 7 (8-16); BLOOD UREA NITROGEN 94 MG/DL (7-18); BUN/CREATININE RATIO 15.9 (5.4-32.0); CALCIUM 7.5 MG/DL (8.5-10.1); CHLORIDE 98 MMOL/L (99-107); GLUCOSE 96 MG/DL (70-104); MAGNESIUM 2.2 MG/DL (1.5-2.4); PHOSPHORUS 5.9 MG/DL (2.3-4.5); POTASSIUM 5.3 MMOL/L (3.5-5.1); SODIUM 137 MMOL/L (135-145); TOTAL CARBON DIOXIDE 31.7 MMOL/L (24-32); VANCOMYCIN,RANDOM 13.7 UG/ML; eGFR 9 ML/MIN
[2017-04-11] MEDS ORDERED: ringers solution, lacted 1,000 ML IV SCH (06:47)
[2017-04-11] MEDS ORDERED: ondansetron/PF 4mg/2ml inj IV PRN (06:50)
[2017-04-11] MEDS ORDERED: fentaNYL/PF 50MCG/1 ML 2ML syringe IV PRN ×2 (06:50)
[2017-04-11] MEDS ORDERED: hydrALAZINE 20mg/ml inj. IV PRN (06:50)
[2017-04-11] MEDS ORDERED: labetalol 5mg/ml 20ml inj. IV PRN (06:50)
[2017-04-11] MEDS: LACTOBACILLUS RHAMNOSUS GG 15 billion unit sprinkle caps PO SCH (07:30)
[2017-04-11] MEDS: furosemide 40mg/4ml inj IV SCH (08:00)
[2017-04-11] MEDS: POVIDONE IODINE TP SCH (08:00)
[2017-04-11] MEDS: K and/or MAG REPLACEMENT MC SCH (08:00)
[2017-04-11] MEDS ORDERED: spironolactone 25 MG tablet PO SCH (08:00)
[2017-04-11] MEDS: metoprolol tartrate 25mg tablet PO SCH ×2 (08:00→20:08)
[2017-04-11] MEDS: amiodarone 200mg tablet PO SCH (08:00)
[2017-04-11] MEDS ORDERED: fentaNYL/PF 50MCG/1 ML 2ML syringe ONE (08:10)
[2017-04-11] MEDS ORDERED: midazolam 2 mg/2 ml injection ONE ×2 (08:11→08:46)
[2017-04-11] MEDS ORDERED: vancomycin/NS 1 GM ADD-VANTAGE 250 ML IV ONE (08:11)
[2017-04-11 08:24] LABS: INR 1.3 INR; PROTHROMBIN TIME 13.4 SECONDS (9.0-12.0)
[2017-04-11] MEDS: potassium Cl 20 mEq SR tablet PO SCH ×2 (08:30→17:45)
[2017-04-11] MEDS ORDERED: phenylephrine 10mg/ml inj IV ONE (08:49)
[2017-04-11] MEDS ORDERED: calcium chloride 100 MG/1 ML inj IV ONE (08:52)
[2017-04-11] MEDS ORDERED: HYDROcodone/acetaminophen 5mg/325mg tablet PO PRN (11:45)
[2017-04-11] MEDS: HYDROcodone/acetaminophen 5mg/325mg tablet PO PRN ×2 (17:46→22:01)
[2017-04-11] MEDS: vancomycin/NS 1 GM ADD-VANTAGE 250 ML IV SCH ×2 (20:08→22:01)
[2017-04-12] VITALS (7 sets, daily range): BP systolic 113–130; BP diastolic 56–78
[2017-04-12] MEDS: temazepam 15mg capsule PO PRN ×2 (00:18→23:32)
[2017-04-12] MEDS: VANCOMYCIN LEVEL IV SCH (02:31)
[2017-04-12] MEDS ORDERED: VANCOMYCIN LEVEL IV SCH (03:00)
[2017-04-12 05:43] LABS: BASOPHILS # (AUTO) 0.1 X10'3 (0-0.2); BASOPHILS % (AUTO) 0.9 % (0-1); EOSINOPHILS # (AUTO) 0.4 X10'3 (0-0.9); HEMATOCRIT 25.6 % (42.0-52.0); HEMOGLOBIN 8.2 g/dl (14.0-17.9); LYMPHOCYTES # (AUTO) 0.9 X10'3 (1.1-4.8); MEAN CORPUSCULAR HEMOGLOBIN 29.2 PG (27.0-31.0); MEAN CORPUSCULAR HGB CONC 31.9 % (33.0-36.5); MEAN CORPUSCULAR VOLUME 91.4 FL (78-98); MEAN PLATELET VOLUME 6.4 FL (7.4-10.4); MONOCYTES # (AUTO) 0.7 X10'3 (0-0.9); MONOCYTES % (AUTO) 9.6 % (2-12); NEUTROPHILS # (AUTO) 5.2 X10'3 (1.8-7.7); NEUTROPHILS % (AUTO) 71.5 % (42-75); PLATELET COUNT 323 X10'3 (140-440); RED CELL DISTRIBUTION WIDTH 15.6 % (11.5-14.5); WHITE BLOOD COUNT 7.3 X10'3 (4.5-11.0)
[2017-04-12 06:06] LABS: ALBUMIN 1.2 G/DL (3.4-5.0); ANION GAP 8 (8-16); BLOOD UREA NITROGEN 91 MG/DL (7-18); BUN/CREATININE RATIO 16.9 (5.4-32.0); CALCIUM 7.8 MG/DL (8.5-10.1); CHLORIDE 98 MMOL/L (99-107); GLUCOSE 135 MG/DL (70-104); MAGNESIUM 2.2 MG/DL (1.5-2.4); PHOSPHORUS 5.6 MG/DL (2.3-4.5); POTASSIUM 5.4 MMOL/L (3.5-5.1); SODIUM 135 MMOL/L (135-145); eGFR 10 ML/MIN
[2017-04-12] MEDS: POVIDONE IODINE TP SCH (08:00)
[2017-04-12 08:12] LABS: ALBUMIN, UR 12.4 % (.); ALPHA-1-GLOBULIN,UR 6.4 % (.); ALPHA-2-GLOBULIN,UR 22.2 % (.); BETA GLOBULIN, UR 27.4 % (.); GAMMA GLOBULIN,UR 31.5 % (.); PROTEIN,TOTAL,URINE 10.6 mg/dL (Not Estab.)
[2017-04-12] MEDS: metoprolol tartrate 25mg tablet PO SCH ×2 (08:24→20:36)
[2017-04-12] MEDS: furosemide 40mg/4ml inj IV SCH (08:24)
[2017-04-12] MEDS: amiodarone 200mg tablet PO SCH (08:24)
[2017-04-12] MEDS: LACTOBACILLUS RHAMNOSUS GG 15 billion unit sprinkle caps PO SCH (08:24)
[2017-04-12] MEDS: enoxaparin 40mg/0.4ml syringe SUBCUT SCH (08:25)
[2017-04-12] MEDS ORDERED: sodium polystyrene sulfonate 15gm/60ml oral suspension PO ONE (09:10)
[2017-04-12] MEDS: HYDROcodone/acetaminophen 5mg/325mg tablet PO PRN ×3 (12:15→21:33)
[2017-04-12] MEDS: piperacillin-tazo 2.25gm/50ml 50 ML IV SCH ×2 (16:16→23:32)
[2017-04-12] MEDS: magnesium hydroxide 30ml (MOM) UD suspension PO PRN (19:08)
[2017-04-12] MEDS ORDERED: bisacodyl 10mg suppository rectal RC PRN (20:55)
[2017-04-13 02:30] VITALS: BP 103/67
[2017-04-13] MEDS: VANCOMYCIN LEVEL IV SCH (03:00)
[2017-04-13] MEDS: HYDROcodone/acetaminophen 5mg/325mg tablet PO PRN (04:44)
[2017-04-13 05:59] LABS: BASOPHILS % (AUTO) 0.8 % (0-1); EOSINOPHILS # (AUTO) 0.3 X10'3 (0-0.9); EOSINOPHILS % (AUTO) 5.3 % (0-6); HEMATOCRIT 26.1 % (42.0-52.0); HEMOGLOBIN 8.4 g/dl (14.0-17.9); MEAN CORPUSCULAR HEMOGLOBIN 29.1 PG (27.0-31.0); MEAN CORPUSCULAR HGB CONC 32.1 % (33.0-36.5); MEAN CORPUSCULAR VOLUME 90.5 FL (78-98); MEAN PLATELET VOLUME 6.6 FL (7.4-10.4); MONOCYTES # (AUTO) 0.6 X10'3 (0-0.9); MONOCYTES % (AUTO) 9.3 % (2-12); NEUTROPHILS # (AUTO) 4.4 X10'3 (1.8-7.7); NEUTROPHILS % (AUTO) 68.6 % (42-75); PLATELET COUNT 370 X10'3 (140-440); RED BLOOD COUNT 2.89 X10'6 (4.70-6.10); RED CELL DISTRIBUTION WIDTH 15.6 % (11.5-14.5); WHITE BLOOD COUNT 6.4 X10'3 (4.5-11.0)
[2017-04-13 06:00] VITALS: BP 107/52
[2017-04-13 06:32] LABS: ALBUMIN 1.4 G/DL (3.4-5.0); ANION GAP 8 (8-16); BLOOD UREA NITROGEN 92 MG/DL (7-18); BUN/CREATININE RATIO 16.4 (5.4-32.0); CALCIUM 7.8 MG/DL (8.5-10.1); CHLORIDE 98 MMOL/L (99-107); GLUCOSE 107 MG/DL (70-104); MAGNESIUM 2.2 MG/DL (1.5-2.4); PHOSPHORUS 5.8 MG/DL (2.3-4.5); POTASSIUM 5.3 MMOL/L (3.5-5.1); SODIUM 134 MMOL/L (135-145); VANCOMYCIN,RANDOM 22.7 UG/ML; eGFR 10 ML/MIN
[2017-04-13] MEDS: POVIDONE IODINE TP SCH (08:00)
[2017-04-13] MEDS: LACTOBACILLUS RHAMNOSUS GG 15 billion unit sprinkle caps PO SCH (08:34)
[2017-04-13] MEDS: amiodarone 200mg tablet PO SCH (08:36)
[2017-04-13] MEDS: furosemide 40mg/4ml inj IV SCH (08:36)
[2017-04-13] MEDS: piperacillin-tazo 2.25gm/50ml 50 ML IV SCH (08:36)
[2017-04-13] MEDS: metoprolol tartrate 25mg tablet PO SCH ×2 (08:37→19:15)
[2017-04-13] MEDS: enoxaparin 40mg/0.4ml syringe SUBCUT SCH (08:38)
[2017-04-13 11:00] VITALS: BP 106/62
[2017-04-13 15:00] VITALS: BP 123/65
[2017-04-13] MEDS ORDERED: sodium polystyrene sulfonate 15gm/60ml oral suspension PO ONE (17:45)
[2017-04-13 18:00] VITALS: BP 142/59
[2017-04-13] MEDS: linezolid 600mg/300ml PREMIX 300 ML IV SCH (19:16)
[2017-04-13 22:00] VITALS: BP 123/81
[2017-04-14] MEDS: HYDROcodone/acetaminophen 5mg/325mg tablet PO PRN (00:12)
[2017-04-14 02:00] VITALS: BP 122/61
[2017-04-14] MEDS: VANCOMYCIN LEVEL IV SCH (03:00)
[2017-04-14 05:30] LABS: BASOPHILS # (AUTO) 0.1 X10'3 (0-0.2); BASOPHILS % (AUTO) 0.9 % (0-1); EOSINOPHILS # (AUTO) 0.3 X10'3 (0-0.9); EOSINOPHILS % (AUTO) 5.6 % (0-6); HEMATOCRIT 24.4 % (42.0-52.0); HEMOGLOBIN 7.8 g/dl (14.0-17.9); LYMPHOCYTES # (AUTO) 0.9 X10'3 (1.1-4.8); LYMPHOCYTES % (AUTO) 15.7 % (21-51); MEAN CORPUSCULAR HEMOGLOBIN 29.2 PG (27.0-31.0); MEAN CORPUSCULAR HGB CONC 32.1 % (33.0-36.5); MEAN CORPUSCULAR VOLUME 90.7 FL (78-98); MEAN PLATELET VOLUME 6.3 FL (7.4-10.4); MONOCYTES # (AUTO) 0.6 X10'3 (0-0.9); MONOCYTES % (AUTO) 9.5 % (2-12); NEUTROPHILS % (AUTO) 68.3 % (42-75); PLATELET COUNT 356 X10'3 (140-440); RED BLOOD COUNT 2.69 X10'6 (4.70-6.10); RED CELL DISTRIBUTION WIDTH 15.6 % (11.5-14.5); WHITE BLOOD COUNT 5.8 X10'3 (4.5-11.0)
[2017-04-14 05:58] LABS: ALBUMIN 1.3 G/DL (3.4-5.0); ANION GAP 8 (8-16); BLOOD UREA NITROGEN 89 MG/DL (7-18); BUN/CREATININE RATIO 15.6 (5.4-32.0); CALCIUM 7.9 MG/DL (8.5-10.1); CHLORIDE 98 MMOL/L (99-107); GLUCOSE 100 MG/DL (70-104); MAGNESIUM 2.3 MG/DL (1.5-2.4); POTASSIUM 5.3 MMOL/L (3.5-5.1); SODIUM 135 MMOL/L (135-145); TOTAL CARBON DIOXIDE 29.3 MMOL/L (24-32); eGFR 9 ML/MIN
[2017-04-14 06:00] VITALS: BP 120/75
[2017-04-14] MEDS: POVIDONE IODINE TP SCH (08:00)
[2017-04-14] MEDS: LACTOBACILLUS RHAMNOSUS GG 15 billion unit sprinkle caps PO SCH (08:12)
[2017-04-14] MEDS: furosemide 40mg/4ml inj IV SCH (08:13)
[2017-04-14] MEDS: linezolid 600mg/300ml PREMIX 300 ML IV SCH (08:16)
[2017-04-14] MEDS: amiodarone 200mg tablet PO SCH (08:16)
[2017-04-14] MEDS: metoprolol tartrate 25mg tablet PO SCH ×2 (08:17→19:52)
[2017-04-14] MEDS: enoxaparin 40mg/0.4ml syringe SUBCUT SCH (08:18)
[2017-04-14 11:00] VITALS: BP 115/66
[2017-04-14] MEDS ORDERED: enoxaparin 30mg/0.3ml syringe SUBCUT SCH (14:50)
[2017-04-14 17:27] VITALS: BP 123/71
[2017-04-14 18:00] VITALS: BP 129/61
[2017-04-14] MEDS ORDERED: sodium polystyrene sulfonate 15gm/60ml oral suspension PO ONE (18:30)
[2017-04-14] MEDS: linezolid 600mg tablet PO SCH (19:52)
[2017-04-14 22:00] VITALS: BP 121/76
[2017-04-15] MEDS: temazepam 15mg capsule PO PRN (00:15)
[2017-04-15 02:00] VITALS: BP 123/56
[2017-04-15 05:30] LABS: EOSINOPHILS # (AUTO) 0.3 X10'3 (0-0.9); EOSINOPHILS % (AUTO) 5.5 % (0-6); HEMATOCRIT 24.2 % (42.0-52.0); HEMOGLOBIN 7.9 g/dl (14.0-17.9); LYMPHOCYTES # (AUTO) 0.8 X10'3 (1.1-4.8); LYMPHOCYTES % (AUTO) 15.4 % (21-51); MEAN CORPUSCULAR HEMOGLOBIN 29.4 PG (27.0-31.0); MEAN CORPUSCULAR HGB CONC 32.7 % (33.0-36.5); MEAN CORPUSCULAR VOLUME 89.9 FL (78-98); MEAN PLATELET VOLUME 6.4 FL (7.4-10.4); MONOCYTES # (AUTO) 0.5 X10'3 (0-0.9); MONOCYTES % (AUTO) 9.9 % (2-12); NEUTROPHILS # (AUTO) 3.3 X10'3 (1.8-7.7); NEUTROPHILS % (AUTO) 68.2 % (42-75); PLATELET COUNT 363 X10'3 (140-440); RED CELL DISTRIBUTION WIDTH 15.7 % (11.5-14.5); WHITE BLOOD COUNT 4.9 X10'3 (4.5-11.0)
[2017-04-15 05:50] LABS: ALBUMIN 1.4 G/DL (3.4-5.0); ANION GAP 11 (8-16); BLOOD UREA NITROGEN 91 MG/DL (7-18); BUN/CREATININE RATIO 15.7 (5.4-32.0); CALCIUM 7.9 MG/DL (8.5-10.1); CHLORIDE 97 MMOL/L (99-107); GLUCOSE 103 MG/DL (70-104); MAGNESIUM 2.4 MG/DL (1.5-2.4); PHOSPHORUS 6.2 MG/DL (2.3-4.5); POTASSIUM 4.7 MMOL/L (3.5-5.1); SODIUM 136 MMOL/L (135-145); TOTAL CARBON DIOXIDE 28.5 MMOL/L (24-32); eGFR 9 ML/MIN
[2017-04-15 06:00] VITALS: BP 118/62
[2017-04-15] MEDS: metoprolol tartrate 25mg tablet PO SCH (07:49)
[2017-04-15] MEDS: linezolid 600mg tablet PO SCH (07:49)
[2017-04-15] MEDS: LACTOBACILLUS RHAMNOSUS GG 15 billion unit sprinkle caps PO SCH (07:49)
[2017-04-15] MEDS: amiodarone 200mg tablet PO SCH (07:49)
[2017-04-15] MEDS: furosemide 40mg/4ml inj IV SCH (07:50)
[2017-04-15] MEDS: POVIDONE IODINE TP SCH (07:51)
[2017-04-15 11:00] VITALS: BP 124/78
[2017-04-15 15:00] VITALS: BP 128/70
== END 2017-04-15 16:41 | DRG 239 ==
LOC: ER 17:32 → ED HOLD 21:35 → PCU 3S 22:35
PROVIDERS: ADMIT Internal Medicine; ATTEND Internal Medicine
PROC: 047N3ZZ Dilation of Left Popliteal Artery, Percutaneous Approach (ICD-10-PCS; 2017-04-06)
PROC: B44FZZZ Ultrasonography of Right Lower Extremity Arteries (ICD-10-PCS; 2017-04-06)
PROC: 0W9G3ZZ Drainage of Peritoneal Cavity, Percutaneous Approach (ICD-10-PCS; 2017-04-10)
PROC: 0Y6N0ZB Detachment at Left Foot, Partial 2nd Ray, Open Approach (ICD-10-PCS; 2017-04-11)
PROC: 0Y6N0ZC Detachment at Left Foot, Partial 3rd Ray, Open Approach (ICD-10-PCS; 2017-04-11)
PROC: 0Y6N0ZD Detachment at Left Foot, Partial 4th Ray, Open Approach (ICD-10-PCS; 2017-04-11)
PROC: 0Y6N0ZF Detachment at Left Foot, Partial 5th Ray, Open Approach (ICD-10-PCS; 2017-04-11)
PROC: 0Y6N0Z9 Detachment at Left Foot, Partial 1st Ray, Open Approach (ICD-10-PCS; principal; 2017-04-11 08:02)
DX: I73.9 Peripheral vascular disease, unspecified (principal); N18.6 End stage renal disease; I13.2 Hypertensive heart and chronic kidney disease with heart failure and with stage 5 chronic kidney disease, or end stage renal disease; N17.9 Acute kidney failure, unspecified; E87.5 Hyperkalemia; L03.116 Cellulitis of left lower limb; R18.8 Other ascites; M86.9 Osteomyelitis, unspecified; I48.2 Chronic atrial fibrillation; I50.23 Acute on chronic systolic (congestive) heart failure; L02.612 Cutaneous abscess of left foot; N39.0 Urinary tract infection, site not specified; R62.7 Adult failure to thrive; K74.60 Unspecified cirrhosis of liver; B19.20 Unspecified viral hepatitis C without hepatic coma; D64.9 Anemia, unspecified; B95.62 Methicillin resistant Staphylococcus aureus infection as the cause of diseases classified elsewhere; I25.10 Atherosclerotic heart disease of native coronary artery without angina pectoris; Z53.20 Procedure and treatment not carried out because of patient's decision for unspecified reasons; Z51.5 Encounter for palliative care; Z66 Do not resuscitate; Z95.0 Presence of cardiac pacemaker; Z91.19 Patient's noncompliance with other medical treatment and regimen; Z79.4 Long term (current) use of insulin; I25.2 Old myocardial infarction; Z87.891 Personal history of nicotine dependence; Z86.73 Personal history of transient ischemic attack (TIA), and cerebral infarction without residual deficits; Z82.3 Family history of stroke; Z82.49 Family history of ischemic heart disease and other diseases of the circulatory system; Z83.3 Family history of diabetes mellitus; Z80.9 Family history of malignant neoplasm, unspecified
CPT/HCPCS: 36415; 36600; 37224; 49083; 71045; 73620; 73660; 80048; 80053; 80202; 81001; 82272; 82570; 82803; 83605; 83735; 83880; 84100; 84132; 84133; 84155; 84156; 84165; 84166; 84300; 84560; 85018; 85025; 85610; 85651; 85730; 86885; 86900; 86901; 87040; 87070; 87075; 87077; 87088; 87186; 88305; 93005; 93306; 93922; 93925; 93975; 96365; 97110; 97161; 97530; 99152; 99153; 99285; A4315; A4353; A6213; A6219; A6222; A6446; A6449; A7000; A9270; C1725; C1760; C1769; C1887; C1894; J0885; J1644; J1650; J1940; J1956; J2001; J2020; J2250; J2370; J2543; J3010; J3370; J3490; J7030; J7042; J7120; Q9967

== ENCOUNTER 2017-04-27 08:22 | Day surgery (SDC) | payer MEDICARE ==
[~2017-04-27] VITALS: Ht 188 cm; Wt 115.5 kg
[2017-04-27] VITALS (13 sets, daily range): BP systolic 101–140; BP diastolic 61–82
[~2017-04-27 08:22] MED LIST changes: +CIPR-230 PO; +POVI30SO
[2017-04-27] MEDS ORDERED: albumin (human) 25% 100 ML IV solution IV PRN (08:50)
[2017-04-27] MEDS ORDERED: normal saline 1000ml 1,000 ML IV PRN (08:50)
[2017-04-27] MEDS ORDERED: ASPI81TA52 PO (09:14)
[2017-04-27] MEDS ORDERED: PHO667C PO (09:14)
[2017-04-27] MEDS ORDERED: METO25TA6 PO (09:14)
[2017-04-27] MEDS ORDERED: AMIO200T57 PO (09:14)
[2017-04-27] MEDS ORDERED: FOLI0.8T22 PO (09:14)
[2017-04-27] MEDS ORDERED: FURO-149 PO (09:14)
[2017-04-27] MEDS ORDERED: LACT1CAP65 PO (09:14)
== END 2017-04-27 12:45 | disposition home or self-care (01) ==
LOC: SSTAY O 08:22
PROVIDERS: ATTEND Radiology Diagnostic Radiology
DX: R18.8 Other ascites (principal); K74.60 Unspecified cirrhosis of liver; N40.0 Benign prostatic hyperplasia without lower urinary tract symptoms; G47.00 Insomnia, unspecified; I48.91 Unspecified atrial fibrillation; I13.0 Hypertensive heart and chronic kidney disease with heart failure and stage 1 through stage 4 chronic kidney disease, or unspecified chronic kidney disease; N18.9 Chronic kidney disease, unspecified; I50.22 Chronic systolic (congestive) heart failure; J44.9 Chronic obstructive pulmonary disease, unspecified; F10.21 Alcohol dependence, in remission; Z86.14 Personal history of Methicillin resistant Staphylococcus aureus infection; Z95.0 Presence of cardiac pacemaker; Z98.890 Other specified postprocedural states; Z88.8 Allergy status to other drugs, medicaments and biological substances; Z88.6 Allergy status to analgesic agent; Z87.891 Personal history of nicotine dependence; Z89.422 Acquired absence of other left toe(s); Z79.82 Long term (current) use of aspirin; Z79.899 Other long term (current) drug therapy
CPT/HCPCS: 49083; A6223; A6257; J7030

== ENCOUNTER 2017-05-08 07:18 | Day surgery (SDC) | payer MEDICARE ==
[2017-05-08] VITALS (9 sets, daily range): BP systolic 108–121; BP diastolic 54–71
[~2017-05-08 07:18] MED LIST changes: +AMIO200T57 PO; +ASPI81TA52 PO; +FOLI0.8T22 PO; +FURO-149 PO; +LACT1CAP65 PO; +METO25TA6 PO; +PHO667C PO
[2017-05-08] MEDS ORDERED: albumin (human) 25% 100 ML IV solution IV PRN (08:00)
[2017-05-08] MEDS ORDERED: normal saline 1000ml 1,000 ML IV PRN (08:00)
== END 2017-05-08 11:35 | disposition home or self-care (01) ==
LOC: SSTAY O 07:18
PROVIDERS: ATTEND Radiology Diagnostic Radiology
DX: R18.8 Other ascites (principal); K76.89 Other specified diseases of liver; B19.20 Unspecified viral hepatitis C without hepatic coma; Z95.810 Presence of automatic (implantable) cardiac defibrillator; Z87.891 Personal history of nicotine dependence; Z98.890 Other specified postprocedural states; Z79.899 Other long term (current) drug therapy; Z88.6 Allergy status to analgesic agent; Z88.8 Allergy status to other drugs, medicaments and biological substances; Z79.82 Long term (current) use of aspirin; Z89.422 Acquired absence of other left toe(s); F10.21 Alcohol dependence, in remission; N40.0 Benign prostatic hyperplasia without lower urinary tract symptoms; J44.9 Chronic obstructive pulmonary disease, unspecified; I13.0 Hypertensive heart and chronic kidney disease with heart failure and stage 1 through stage 4 chronic kidney disease, or unspecified chronic kidney disease; Z95.0 Presence of cardiac pacemaker; D64.89 Other specified anemias; I48.2 Chronic atrial fibrillation; N18.6 End stage renal disease; I50.23 Acute on chronic systolic (congestive) heart failure; I25.10 Atherosclerotic heart disease of native coronary artery without angina pectoris; Z80.8 Family history of malignant neoplasm of other organs or systems
CPT/HCPCS: 49083; A6257; J7030

== ENCOUNTER 2017-05-22 08:21 | Day surgery (SDC) | payer MEDICARE ==
[2017-05-22] VITALS (8 sets, daily range): BP systolic 113–137; BP diastolic 63–89
[~2017-05-22] VITALS: Ht 193 cm; Wt 115.2 kg
[~2017-05-22 08:21] MED LIST changes: -AMIO200T57 PO; -ASPI81TA52 PO; -CIPR-230 PO; -FOLI0.8T22 PO; -FURO-149 PO; -LACT1CAP65 PO; -METO25TA6 PO; -Magnesium PO; +NOHOME MEDS; -PHO667C PO; -POVI30SO; -VITAMIN B12 PO; -VITAMIN B6 PO
[2017-05-22] MEDS ORDERED: normal saline 1000ml 1,000 ML IV PRN (08:40)
== END 2017-05-22 10:35 | disposition home or self-care (01) ==
LOC: SSTAY O 08:21
PROVIDERS: ATTEND Radiology Vascular & Interventional Radiology
DX: R18.8 Other ascites (principal); B19.20 Unspecified viral hepatitis C without hepatic coma; I13.0 Hypertensive heart and chronic kidney disease with heart failure and stage 1 through stage 4 chronic kidney disease, or unspecified chronic kidney disease; I50.22 Chronic systolic (congestive) heart failure; N18.4 Chronic kidney disease, stage 4 (severe); I48.91 Unspecified atrial fibrillation; N40.0 Benign prostatic hyperplasia without lower urinary tract symptoms; F10.21 Alcohol dependence, in remission; G47.33 Obstructive sleep apnea (adult) (pediatric); Z86.14 Personal history of Methicillin resistant Staphylococcus aureus infection; Z83.3 Family history of diabetes mellitus; Z98.890 Other specified postprocedural states; Z87.891 Personal history of nicotine dependence; Z88.6 Allergy status to analgesic agent; Z89.432 Acquired absence of left foot; Z95.810 Presence of automatic (implantable) cardiac defibrillator; Z90.89 Acquired absence of other organs; Z96.652 Presence of left artificial knee joint; Z98.42 Cataract extraction status, left eye; Z98.41 Cataract extraction status, right eye; Z88.8 Allergy status to other drugs, medicaments and biological substances
CPT/HCPCS: 49083; A6257; J7030

== ENCOUNTER 2017-05-29 07:35 | Day surgery (SDC) | payer MEDICARE ==
[2017-05-29] VITALS (8 sets, daily range): BP systolic 102–133; BP diastolic 60–85
[~2017-05-29] VITALS: Ht 193 cm; Wt 115.2 kg
[2017-05-29] MEDS ORDERED: NO HOME MEDS (07:54)
[2017-05-29] MEDS ORDERED: albumin (human) 25% 100 ML IV solution IV PRN (08:15)
[2017-05-29] MEDS ORDERED: pneumococcal 23-VAL P-sac vacc 25 mcg/0.5ml vial IMVAC ONE (09:10)
== END 2017-05-29 10:35 | disposition home or self-care (01) ==
LOC: SSTAY O 07:35
PROVIDERS: ATTEND Radiology Diagnostic Radiology
DX: R18.8 Other ascites (principal); K74.60 Unspecified cirrhosis of liver; I13.0 Hypertensive heart and chronic kidney disease with heart failure and stage 1 through stage 4 chronic kidney disease, or unspecified chronic kidney disease; I50.22 Chronic systolic (congestive) heart failure; N18.4 Chronic kidney disease, stage 4 (severe); I48.91 Unspecified atrial fibrillation; N40.0 Benign prostatic hyperplasia without lower urinary tract symptoms; J44.9 Chronic obstructive pulmonary disease, unspecified; G47.33 Obstructive sleep apnea (adult) (pediatric); F10.21 Alcohol dependence, in remission; Z89.422 Acquired absence of other left toe(s); Z95.810 Presence of automatic (implantable) cardiac defibrillator; Z88.6 Allergy status to analgesic agent; Z87.891 Personal history of nicotine dependence; Z79.82 Long term (current) use of aspirin; Z79.899 Other long term (current) drug therapy; Z90.89 Acquired absence of other organs; Z91.09 Other allergy status, other than to drugs and biological substances; Z88.8 Allergy status to other drugs, medicaments and biological substances; Z98.890 Other specified postprocedural states
CPT/HCPCS: 49083; A6257

== ENCOUNTER 2017-06-05 07:18 | Day surgery (SDC) | payer MEDICARE ==
[2017-06-05] VITALS (8 sets, daily range): BP systolic 108–123; BP diastolic 49–67
[~2017-06-05] VITALS: Ht 193 cm; Wt 115.2 kg
[~2017-06-05 07:18] MED LIST changes: +NO HOME MEDS; -NOHOME MEDS
[2017-06-05] MEDS ORDERED: normal saline 1000ml 1,000 ML IV PRN (07:50)
[2017-06-05] MEDS ORDERED: albumin (human) 25% 100 ML IV solution IV PRN (07:50)
== END 2017-06-05 10:05 | disposition home or self-care (01) ==
LOC: SSTAY O 07:18
PROVIDERS: ATTEND Radiology Vascular & Interventional Radiology
DX: R18.8 Other ascites (principal); N40.0 Benign prostatic hyperplasia without lower urinary tract symptoms; N39.0 Urinary tract infection, site not specified; I48.91 Unspecified atrial fibrillation; I13.0 Hypertensive heart and chronic kidney disease with heart failure and stage 1 through stage 4 chronic kidney disease, or unspecified chronic kidney disease; N18.9 Chronic kidney disease, unspecified; I50.22 Chronic systolic (congestive) heart failure; G47.33 Obstructive sleep apnea (adult) (pediatric); F10.21 Alcohol dependence, in remission; Z87.891 Personal history of nicotine dependence; Z98.41 Cataract extraction status, right eye; Z90.89 Acquired absence of other organs; Z98.42 Cataract extraction status, left eye; Z86.14 Personal history of Methicillin resistant Staphylococcus aureus infection; Z88.8 Allergy status to other drugs, medicaments and biological substances; Z88.6 Allergy status to analgesic agent; Z89.422 Acquired absence of other left toe(s); Z91.09 Other allergy status, other than to drugs and biological substances
CPT/HCPCS: 49083; A6257; J7030

== ENCOUNTER 2017-06-12 07:19 | Day surgery (SDC) | payer MEDICARE ==
[2017-06-12] VITALS (7 sets, daily range): BP systolic 125–143; BP diastolic 65–81
[~2017-06-12] VITALS: Ht 193 cm; Wt 115.2 kg
[2017-06-12] MEDS ORDERED: LIDOcaine 1% 30ml preserv. free vial SQ ONE (08:30)
== END 2017-06-12 11:35 ==
LOC: SSTAY O 07:19
PROVIDERS: ATTEND Radiology Diagnostic Radiology
DX: R18.8 Other ascites (principal); B19.20 Unspecified viral hepatitis C without hepatic coma; I13.0 Hypertensive heart and chronic kidney disease with heart failure and stage 1 through stage 4 chronic kidney disease, or unspecified chronic kidney disease; N18.4 Chronic kidney disease, stage 4 (severe); I50.9 Heart failure, unspecified; I48.91 Unspecified atrial fibrillation; N40.0 Benign prostatic hyperplasia without lower urinary tract symptoms; F10.21 Alcohol dependence, in remission; G47.33 Obstructive sleep apnea (adult) (pediatric); Z83.3 Family history of diabetes mellitus; Z88.5 Allergy status to narcotic agent; Z95.810 Presence of automatic (implantable) cardiac defibrillator; Z87.891 Personal history of nicotine dependence; Z91.09 Other allergy status, other than to drugs and biological substances; Z90.49 Acquired absence of other specified parts of digestive tract; Z86.14 Personal history of Methicillin resistant Staphylococcus aureus infection; Z98.890 Other specified postprocedural states
CPT/HCPCS: 49083; A6257; J3490

== ENCOUNTER 2017-06-22 06:55 | Day surgery (SDC) | payer MEDICARE ==
[2017-06-22] VITALS (11 sets, daily range): BP systolic 120–138; BP diastolic 68–89
[~2017-06-22] VITALS: Ht 193 cm; Wt 102.1 kg
[2017-06-22] MEDS ORDERED: AMIO200T57 PO (07:20)
[2017-06-22] MEDS ORDERED: METO25TA6 PO (07:27)
[2017-06-22] MEDS ORDERED: FLO0.4C PO (07:27)
[2017-06-22] MEDS ORDERED: TEMA30CA5 PO (07:27)
[2017-06-22] MEDS ORDERED: FURO40TA4 PO (07:27)
[2017-06-22] MEDS ORDERED: LIDOcaine 1% 30ml preserv. free vial SQ ONE (08:30)
== END 2017-06-22 11:05 | disposition home or self-care (01) ==
LOC: SSTAY O 06:55
PROVIDERS: ATTEND Radiology Diagnostic Radiology
DX: R18.8 Other ascites (principal); I13.0 Hypertensive heart and chronic kidney disease with heart failure and stage 1 through stage 4 chronic kidney disease, or unspecified chronic kidney disease; N18.4 Chronic kidney disease, stage 4 (severe); I50.9 Heart failure, unspecified; I48.91 Unspecified atrial fibrillation; B19.20 Unspecified viral hepatitis C without hepatic coma; F10.21 Alcohol dependence, in remission; J44.9 Chronic obstructive pulmonary disease, unspecified; G47.33 Obstructive sleep apnea (adult) (pediatric); N40.0 Benign prostatic hyperplasia without lower urinary tract symptoms; Z89.422 Acquired absence of other left toe(s); Z72.89 Other problems related to lifestyle; Z86.14 Personal history of Methicillin resistant Staphylococcus aureus infection; Z95.810 Presence of automatic (implantable) cardiac defibrillator; Z83.3 Family history of diabetes mellitus; Z88.5 Allergy status to narcotic agent; Z98.890 Other specified postprocedural states; Z87.891 Personal history of nicotine dependence; Z91.048 Other nonmedicinal substance allergy status; Z91.09 Other allergy status, other than to drugs and biological substances; Z79.899 Other long term (current) drug therapy
CPT/HCPCS: 49083; A6257; J3490

== ENCOUNTER 2017-06-30 08:15 | Day surgery (SDC) | payer MEDICARE ==
[~2017-06-30] VITALS: Ht 193 cm; Wt 115.2 kg
[2017-06-30] VITALS (10 sets, daily range): BP systolic 117–169; BP diastolic 64–92
[~2017-06-30 08:15] MED LIST changes: +AMIO200T57 PO; +FLO0.4C PO; +FURO40TA4 PO; +METO25TA6 PO; -NO HOME MEDS; +TEMA30CA5 PO
[2017-06-30] MEDS ORDERED: albumin (human) 25% 100 ML IV solution IV PRN (08:40)
[2017-06-30] MEDS ORDERED: LIDOcaine 1% 30ml preserv. free vial SQ ONE (08:40)
== END 2017-06-30 11:50 ==
LOC: SSTAY O 08:15
PROVIDERS: ATTEND Radiology Diagnostic Radiology
DX: R18.8 Other ascites (principal); B19.20 Unspecified viral hepatitis C without hepatic coma; I12.9 Hypertensive chronic kidney disease with stage 1 through stage 4 chronic kidney disease, or unspecified chronic kidney disease; N18.4 Chronic kidney disease, stage 4 (severe); I50.9 Heart failure, unspecified; I48.91 Unspecified atrial fibrillation; J44.9 Chronic obstructive pulmonary disease, unspecified; N40.0 Benign prostatic hyperplasia without lower urinary tract symptoms; Z90.89 Acquired absence of other organs; Z89.422 Acquired absence of other left toe(s); Z98.42 Cataract extraction status, left eye; Z98.41 Cataract extraction status, right eye; Z95.810 Presence of automatic (implantable) cardiac defibrillator; Z88.6 Allergy status to analgesic agent; Z87.891 Personal history of nicotine dependence; Z91.048 Other nonmedicinal substance allergy status; Z72.89 Other problems related to lifestyle; Z86.14 Personal history of Methicillin resistant Staphylococcus aureus infection; Z79.899 Other long term (current) drug therapy; Z98.890 Other specified postprocedural states; Z83.3 Family history of diabetes mellitus
CPT/HCPCS: 49083; A6257; J3490

== ENCOUNTER 2017-07-10 08:59 | Day surgery (SDC) | payer MEDICARE ==
[2017-07-10] VITALS (11 sets, daily range): BP systolic 105–150; BP diastolic 60–98
[~2017-07-10] VITALS: Ht 193 cm; Wt 117.0 kg
[~2017-07-10 08:59] MED LIST changes: +LIDOcaine 1% 30ml preserv. free vial SQ STA
[2017-07-10] MEDS ORDERED: albumin (human) 25% 100ml IV 100 ML IV ONE (09:20)
== END 2017-07-10 11:20 | disposition home or self-care (01) ==
LOC: SSTAY O 08:59
PROVIDERS: ATTEND Radiology Diagnostic Radiology
DX: R18.8 Other ascites (principal); I13.0 Hypertensive heart and chronic kidney disease with heart failure and stage 1 through stage 4 chronic kidney disease, or unspecified chronic kidney disease; N18.4 Chronic kidney disease, stage 4 (severe); I50.22 Chronic systolic (congestive) heart failure; I48.91 Unspecified atrial fibrillation; B19.20 Unspecified viral hepatitis C without hepatic coma; I42.8 Other cardiomyopathies; F10.21 Alcohol dependence, in remission; G47.33 Obstructive sleep apnea (adult) (pediatric); J44.9 Chronic obstructive pulmonary disease, unspecified; N40.0 Benign prostatic hyperplasia without lower urinary tract symptoms; Z89.422 Acquired absence of other left toe(s); Z98.42 Cataract extraction status, left eye; Z98.41 Cataract extraction status, right eye; Z86.14 Personal history of Methicillin resistant Staphylococcus aureus infection; Z90.89 Acquired absence of other organs; Z88.6 Allergy status to analgesic agent; Z95.810 Presence of automatic (implantable) cardiac defibrillator; Z83.3 Family history of diabetes mellitus; Z87.891 Personal history of nicotine dependence; Z91.048 Other nonmedicinal substance allergy status; Z79.82 Long term (current) use of aspirin; Z96.652 Presence of left artificial knee joint; Z98.890 Other specified postprocedural states; Z79.899 Other long term (current) drug therapy
CPT/HCPCS: 49083; A6257; J3490

== ENCOUNTER 2017-07-17 07:06 | Day surgery (SDC) | payer MEDICARE ==
[2017-07-17] VITALS (9 sets, daily range): BP systolic 109–137; BP diastolic 66–82
[~2017-07-17] VITALS: Ht 193 cm; Wt 115.2 kg
== END 2017-07-17 10:15 | disposition home or self-care (01) ==
LOC: SSTAY O 07:06
PROVIDERS: ATTEND Radiology Vascular & Interventional Radiology
DX: R18.8 Other ascites (principal); B19.20 Unspecified viral hepatitis C without hepatic coma; I13.0 Hypertensive heart and chronic kidney disease with heart failure and stage 1 through stage 4 chronic kidney disease, or unspecified chronic kidney disease; N18.4 Chronic kidney disease, stage 4 (severe); I50.9 Heart failure, unspecified; J44.9 Chronic obstructive pulmonary disease, unspecified; G47.33 Obstructive sleep apnea (adult) (pediatric); F10.21 Alcohol dependence, in remission; I48.91 Unspecified atrial fibrillation; N40.0 Benign prostatic hyperplasia without lower urinary tract symptoms; Z98.42 Cataract extraction status, left eye; Z98.41 Cataract extraction status, right eye; Z87.891 Personal history of nicotine dependence; Z91.048 Other nonmedicinal substance allergy status; Z89.432 Acquired absence of left foot; Z90.89 Acquired absence of other organs; Z86.14 Personal history of Methicillin resistant Staphylococcus aureus infection; Z83.3 Family history of diabetes mellitus; Z88.5 Allergy status to narcotic agent; Z95.810 Presence of automatic (implantable) cardiac defibrillator; Z98.890 Other specified postprocedural states; Z79.899 Other long term (current) drug therapy
CPT/HCPCS: 49083; A6257; J3490

== ENCOUNTER 2017-07-24 07:53 | Day surgery (SDC) | payer MEDICARE ==
[2017-07-24] VITALS (14 sets, daily range): BP systolic 103–152; BP diastolic 48–75
[~2017-07-24] VITALS: Ht 193 cm; Wt 117.0 kg
[2017-07-24] MEDS ORDERED: albumin (human) 25% 100 ML IV solution IV PRN (08:30)
[2017-07-28] MEDS ORDERED: HYDR-569 PO (15:01)
== END 2017-07-24 10:35 | disposition home or self-care (01) ==
LOC: SSTAY O 07:53
PROVIDERS: ATTEND Radiology Vascular & Interventional Radiology
DX: R18.8 Other ascites (principal); B19.20 Unspecified viral hepatitis C without hepatic coma; I13.0 Hypertensive heart and chronic kidney disease with heart failure and stage 1 through stage 4 chronic kidney disease, or unspecified chronic kidney disease; N18.4 Chronic kidney disease, stage 4 (severe); I50.9 Heart failure, unspecified; I42.8 Other cardiomyopathies; J44.9 Chronic obstructive pulmonary disease, unspecified; G47.33 Obstructive sleep apnea (adult) (pediatric); I48.91 Unspecified atrial fibrillation; N40.0 Benign prostatic hyperplasia without lower urinary tract symptoms; F10.21 Alcohol dependence, in remission; Z86.14 Personal history of Methicillin resistant Staphylococcus aureus infection; Z79.82 Long term (current) use of aspirin; Z79.891 Long term (current) use of opiate analgesic; Z89.422 Acquired absence of other left toe(s); Z98.41 Cataract extraction status, right eye; Z98.42 Cataract extraction status, left eye; Z96.651 Presence of right artificial knee joint; Z83.3 Family history of diabetes mellitus; Z95.810 Presence of automatic (implantable) cardiac defibrillator; Z88.5 Allergy status to narcotic agent; Z87.891 Personal history of nicotine dependence; Z89.432 Acquired absence of left foot; Z91.048 Other nonmedicinal substance allergy status; Z90.89 Acquired absence of other organs; Z88.8 Allergy status to other drugs, medicaments and biological substances; Z79.899 Other long term (current) drug therapy; Z98.890 Other specified postprocedural states
CPT/HCPCS: 49083; A6257; J3490